=== PATIENT | male | born 1975 | race Caucasian/White ===

== ENCOUNTER → 2018-12-18 | Outpatient (REF) ==
--- NOTE | 2018-12-18 18:43 | REP ---
RIGHT HAND SERIES, FOUR VIEWS: Four views of the right hand are performed. HAND: There is no evidence of an acute fracture, dislocation or intrinsic bone disease. The joint spaces appear unremarkable and are well preserved. IMPRESSION: No fracture or dislocation. Electronically Signed by Armando Banegas MD 12/19/2018 10:52 A
--- NOTE | 2018-12-18 18:44 | REP ---
RIGHT KNEE, FIVE VIEWS: Five views of the right knee are performed. There is no acute fracture or dislocation. There is mild medial joint space narrowing and subchondral sclerosis. I do not see a significant joint effusion. IMPRESSION: Mild degenerative changes. Electronically Signed by Armando Banegas MD 12/19/2018 10:53 A
--- NOTE | 2018-12-18 19:28 | REP ---
LUMBOSACRAL SPINE: Three AP and lateral views of the lumbosacral spine are performed. There is no compression fracture. There is normal lumbar lordosis. Minimal spurring is seen anteriorly at L3 and L4. Small Schmorl's nodes are seen at the superior and inferior endplates of L1. There is not significant degenerative disc space narrowing. There is mild sclerosis at the facets of L4-5 and L5-S1. Posterior elements are intact. IMPRESSION: Minor degenerative changes. Electronically Signed by Armando Banegas MD 12/19/2018 11:10 A
== END ==
LOC: M SMT 14:20
PROVIDERS: ATTEND Internal Medicine
DX: Z02.71 Encounter for disability determination (principal)